=== PATIENT | female | born 1980 | race Caucasian/White ===

== ENCOUNTER 2022-08-19 13:02 | Inpatient (IN) ==
--- NOTE | 2022-08-13 13:27 | Anesthesiology Consultation ---
Date of Service August 13, 2022 Assessment & Plan (1) Encounter for pre-operative examination: Chart Review Chart Review: Acceptable Risk for Surgery and Patient NOT seen in Pre Admission Testing - Check test AM DOS -COVID screening: Per PAT nursing assessment on 08/13/22. Pt tested Covid positive 07/07/22 with a home test. Had fever, chills and cough- symptoms have since resolved. Pt scheduled as outpatient surgery- no further testing needed from anesthesia standpoint. No known COVID-19 positive contacts or current COVID-19 related symptoms. Travel screen negative. Patient vaccinated for Covid. At surgeon discretion if preop Covid testing being done. Consults Requested none ASA ASA2 Proposed Anesthesia Anesthesia Type: General Risk / Benefits Reviewed With: PT / POA / Parent / Guardian, Accepts Plan and Informed Consent Obtained History Surgery Operation Date: 08/19/22 13:40 Proposed Procedures p Laparoscopic Cholecystectomy, Possible Open or Cholangiogram - Derrek Hendrix MD Height/Weight Height: 5 ft 4 in Weight: 79.379 kg Allergies Allergy/AdvReac Type Severity Reaction Status Date / Time amoxicillin AdvReac Intermediate CAUSES Verified 08/19/22 13:33 UTI'S Medications Home Medications Medication Instructions Recorded Confirmed Last Taken famotidine 20 mg tablet 20 mg PO BID 08/13/22 08/19/22 08/19/22 09:00 omeprazole 20 mg capsule,delayed 20 mg PO QAM 08/13/22 08/19/22 08/19/22 09:00 release Active Medications Generic Name Dose Route Start Last Admin Trade Name Freq PRN Reason Stop Dose Admin Lactated Ringer's 1,000 mls @ 15 mls/hr 08/19/22 06:00 08/19/22 13:35 Lr IV 08/20/22 05:59 15 mls/hr .Q24H UYEN Administration NPO Date Last Intake of Fluids: 08/19/22 Time Last Intake of Fluids: 00:00 Date Last Intake of Solids: 08/19/22 Time Last Intake of Solids: 00:00 Past Medical History Medical History GERD (gastroesophageal reflux disease) History of COVID-19 07/07/22> SYMPTOMS RESOLVED Exercise / Class Metabolic Activity II 4-5 Yardwork/Stairs/Walk up hill Past Family History Family History Other No family history of adverse response to anesthesia Past Surgical History Surgical History History of esophagogastroduodenoscopy (EGD) History of tonsillectomy [place] teeth removed Past Anesthesia History No Hx of Anesthesia Complications and No Family Hx of Anesthesia Complications History of PONV No Hx of PONV and No Hx of Motion Sickness Social History Smoking Status: Current every day smoker tobacco type: cigarettes Smoking cigarettes per day: 20 DAILY>ADVISED Hx Alcohol Use: Yes Alcohol type: hard liquor alcohol intake frequency: a few times a month Hx Substance Use: Yes substance use type: marijuana Last Used Substance Other:: LAST USED>1 WEEK AGO (ADVISED) Physical Exam Vital Signs Last Vital Signs Temp 97.5 F L 08/19/22 13:24 Pulse 65 08/19/22 13:24 Resp 18 08/19/22 13:24 BP 125/63 08/19/22 13:24 Pulse Ox 98 08/19/22 13:24 O2 Del Method 08/19/22 13:24 ENMT Mouth: + chipped teeth (Cracked R lower molar) Thyromental Distance: > or= 3.5 Finger Breadths Mallampati Class: II Neck normal visual inspection Respiratory normal respiratory effort Auscultation: lungs clear to auscultation bilaterally Cardiovascular Rate/Rhythm: regular rate and regular rhythm Testing Laboratory Results 08/19/22 13:15 POC Ur Test NEG 08/04/22= SODIUM: 138 POTASSIUM: 4.2 CHLORIDE: 104 CO2: 27 BUN: 10 CREATININE: 0.8 GLUCOSE: 83 07/31/22= WBC: 8.87 H/H: 13.4/41.5 PLATELETS: 503 (platelets 467 11/2021- stable)
[~2022-08-19 13:02] MED LIST: CLINDA 900 MG **Premixed Bag IV SCH; LR 15ML/HR IV SCH
[2022-08-19] MEDS ORDERED: ATROPINE SULFATE 0.1 MG/ML 10ML SYR IV PRN (14:49)
[2022-08-19] MEDS ORDERED: ePHEDrine sulfate 50 MG/ML AMP IV PRN (14:49)
[2022-08-19] MEDS ORDERED: ONDANSETRON INJ 2 MG/ML 2 ML VIAL IV PRN (14:49)
--- NOTE | 2022-08-19 14:53 | History & Physical Bridge Note ---
Date of Service August 19, 2022 History & Physical Bridge Note I have examined the patient, reviewed the History & Physical and in the interval since the performance of the History & Physical I have noted the following changes of clinical significance: no changes noted
[2022-08-19] MEDS ORDERED: BACITRACIN OINT 15 GM TUBE ONE (15:14)
[2022-08-19] MEDS ORDERED: LIDOCAINE 1% LOCAL 20 ML VIAL ONE (15:14)
[2022-08-19] MEDS ORDERED: BUPIVACAINE 0.5 % 5 MG/1 ML MPF 30ML VIAL ONE (15:14)
[2022-08-19] MEDS ORDERED: fentaNYL citrate 100 MCG/2 ML VIAL ONE ×3 (15:15→17:08)
[2022-08-19] MEDS ORDERED: MIDAZOLAM HCL 1 MG/ML 2ML VIAL ONE (15:15)
[2022-08-19] MEDS ORDERED: ACETAMINOPHEN 1000 MG/100 ML IV IV ONE (15:36)
[2022-08-19] MEDS ORDERED: LIDOCAINE 2% MPF LOCAL 5 ML VIAL INFIL ONE (15:41)
[2022-08-19] MEDS ORDERED: ONDANSETRON INJ 2 MG/ML 2 ML VIAL ONE (15:41)
[2022-08-19] MEDS ORDERED: ROCURONIUM BROMIDE 10 MG/ML 5 ML VIAL IV ONE ×3 (15:41→17:02)
[2022-08-19] MEDS ORDERED: DEXAMETHASONE SOD INJ 4 MG/ML VIAL ONE (15:41)
[2022-08-19] MEDS ORDERED: PROPOFOL IV EMULSION 10 MG/ML 20 ML VIAL IV ONE ×2 (15:41→17:26)
[2022-08-19] MEDS ORDERED: GLYCOPYRROLATE 0.2 MG/ML VIAL ONE (17:15)
[2022-08-19] MEDS ORDERED: NEOSTIGMINE METHYLSULFATE 1 MG/ML 10ML VIAL ONE (17:15)
[2022-08-19] MEDS: fentaNYL citrate 100 MCG/2 ML VIAL IV PRN ×4 (17:42→18:03)
--- NOTE | 2022-08-19 18:25 | Anesthesiology Progress Note ---
Date of Service August 19, 2022 Anesthesia Post Procedure Vital Signs Vital Signs: Temp Pulse Pulse Resp BP BP Pulse Ox 08/19/22 18:15 36.5 C 64 17 118/85 100 08/19/22 18:05 56 L 12 133/80 96 08/19/22 17:55 69 14 144/82 H 100 08/19/22 17:45 68 21 120/72 100 08/19/22 17:36 36.7 C 74 20 129/75 100 08/19/22 13:24 36.4 C L 65 18 125/63 98 O2 Del Method O2 Flow Rate 08/19/22 18:15 Room Air 08/19/22 18:05 Room Air 08/19/22 17:55 Oxymask 2 08/19/22 17:45 Oxymask 6 08/19/22 17:36 Oxymask 6 08/19/22 13:24 Room Air Pain Intensity Abdomen: Pain Intensity: 2 Transfer of Care Handoff Completed per policy Notes Mental Status: alert / awake / arousable Patient Amnestic to Procedure: Yes Nausea / Vomiting: adequately controlled Pain: adequately controlled Airway Patency, RR, SpO2: stable & adequate BP & HR: stable & adequate Hydration State: stable & adequate Anesthetic Complications: no major complications apparent and Pt Satisfied with anesthetic care
[2022-08-19] MEDS: LACTATED RINGER'S 1,000 ML IV SCH (18:50)
--- NOTE | 2022-08-19 19:13 | Post Operative Brief Note ---
Immediate Post Op Note v1 Date of Surgery August 19, 2022 Pre & Post Diagnosis Operation Date: 08/19/22 13:40 Pre-Op Diagnosis: Chronic Calculous Cholecystitis Post-Op Diagnosis: acute Calculous Cholecystitis I identified the patient and participated in the time-out.: Yes Procedure Operation Date: 08/19/22 13:40 Actual Procedures p Laparoscopic Subtotal Cholecystectomy(Not Applicable) - Derrek Hendrix MD Surgeon Derrek Hendrix MD E M Assembler DEBRA De Jesus Estimated Blood Loss 20 Findings Consistent with Post-Op Diagnosis significant inflammation on gallbladder wall, pus in gallbladder, large gallstone ( 3.3cm ) at gallbladder neck, Fluids 800ml Specimens gallbladder Drains Erik-Montelongo Drain (10mm flat) Anesthesia Type General Complications none Disposition Accompanied Patient To Recovery: Yes
[2022-08-19] MEDS: metroNIDAZOLE 500 MG/100 ML BAG IV SCH (19:47)
[2022-08-19] MEDS: NICOTINE 7 MG/24 HR TDSY TD SCH (20:06)
[2022-08-19] MEDS: CIPROFLOXACIN / D5W 400 MG/200 ML BAG IV SCH (20:07)
[2022-08-19] MEDS: FAMOTIDINE 20 MG TAB PO SCH (20:07)
--- NOTE | 2022-08-19 20:15 | Operative Report (OR) ---
DATE OF PROCEDURE: 08/19/2022. PREOPERATIVE DIAGNOSES: Acute cholecystitis, cholelithiasis. POSTOPERATIVE DIAGNOSES: Acute cholecystitis, cholelithiasis. OPERATION: Laparoscopic subtotal cholecystectomy. ROSSI drainage x1. SURGEON: Derrek Hendrix MD. ANESTHESIA: General. ESTIMATED BLOOD LOSS: About 20 mL. FINDINGS: Large gallstone size about 3 x 3 cm. The gallstone stuck to the gallbladder neck, caused the gallbladder with significant inflammation with pus inside the gallbladder. COMPLICATIONS: None. INDICATIONS FOR THE PROCEDURE: This is a 42-year-old female, who presented with acute cholecystitis with cholelithiasis. I recommended to do a laparoscopic cholecystectomy, possible open, possible cho langiogram. I did talk to the patient about the benefits, risks, and alternate procedure. I indicat ed the risks may include, but not limited to, such as bleeding, infection, injury to other organs, in jury to common bile duct, bile leak, may need ERCP, sepsis, subtotal cholecystectomy, incisional sol ia. The patient understands. She signed informed consent and I answered all questions. DETAILS OF PROCEDURE: After we identified the patient and verified the procedure, we brought the pat ient to the OR, put the patient in the supine position on the OR table. The patient received SCD on bilateral legs to prevent DVT. Also, the patient received 900 mg of clindamycin IV for prophylactic antibiotic. The patient received general anesthesia without difficulty. The abdomen was prepped and draped in routine sterile fashion. After timeout, I injected the local anesthesia by using 1% lidoc gilson mixed with 0.5% Marcaine just above the umbilicus. Then I made a small incision just above umbil icus, opened fascia, opened peritoneum. Under direct vision, put a Yoli trocar in, connected to CO 2 to create pneumoperitoneum, flow rate at 6 liters per minute, pressure not more than 14 mmHg. Once we got a nice pneumoperitoneum, we put a camera in, looked around the abdomen, it shows normal findi ng on the liver; however, the gallbladder has significant inflammation, gallbladder wall thickening, edema, and significant distention confirmed the diagnosis of acute cholecystitis. Once we confirmed the diagnosis, we put another three 5 mm trocars on the right upper quadrant area and there about a 3 .3 cm large stone stuck to the gallbladder neck causing the whole gallbladder inflammation and at thi s moment, we tried to expose the triangle of Calot, but because of significant inflammation, we could not expose the cystic duct. At this moment, we decided to use a top-down technique. We used the Beltran ranjit to take down the gallbladder from the liver and then we opened the gallbladder, there was some pus came out. We suctioned out and then again, we found the patient had one large stone stuck to the gallbladder neck. Once we removed gallbladder neck and then we used the Endoloop to close near the gallbladder cystic duct x2; rechecked, no bile leak. Then, we used the Harmonic to take down the res t of the gallbladder, liver, one tiny piece near the cystic duct to prevent any potential injuries. The common bile duct rechecked, no bile leak. At this moment, I decided to put one RSOSI drainage becau se significant inflammation on the gallbladder. I put a 10 mm ROSSI drainage through the 5 mm trocar sit e using 2-0 silk to suture the drainage on the skin. Then, we removed the gallbladder with gallstone through the catch bag. Then, we reinserted the Yoli trocar in, connected to CO2 to create pneumop eritoneum, again to look around the abdomen, no bile leak and no active bleeding from the liver bed. Then, we removed all trocars under direct vision. No active bleeding from the trocar site. Pneumop eritoneum was released. Then I closed the umbilical incision fascial layer by using 0 Vicryl figure-o f-eight x2, closed subcutaneous layer by using 2-0 Vicryl interruptedly, closed skin by using 4-0 Fredi ryl continuous running, closed another three 5 mm trocar site of skin only by using 4-0 Vicryl. Then , we put the dressing on. The patient tolerated the procedure well. All instrument, needle, and spo nge counts were correct x2 at the end of the case. The patient was transferred to recovery room in s table condition. The specimen was sent to pathology. After the procedure, I did talk to the patient 's family member about the OR finding and the procedure we did. Also, I recommend the patient stay i n the hospital overnight and good control of pain and control infection, give her IV antibiotic and I V pain medication and the patient's family member understand. She agreed. Job ID: [id number]
[2022-08-19] MEDS: oxyCODONE/ACETAMINOPHEN 5mg/325mg TAB PO PRN (20:21)
[2022-08-19] MEDS: HYDROmorphone INJ 0.5 MG/0.5 ML SYR IV PRN (22:15)
[2022-08-20] MEDS: oxyCODONE/ACETAMINOPHEN 5mg/325mg TAB PO PRN ×5 (00:44→20:50)
[2022-08-20] MEDS: metroNIDAZOLE 500 MG/100 ML BAG IV SCH ×3 (04:02→20:52)
[2022-08-20] MEDS: CIPROFLOXACIN / D5W 400 MG/200 ML BAG IV SCH ×2 (06:46→20:41)
[2022-08-20] MEDS: HYDROmorphone INJ 0.5 MG/0.5 ML SYR IV PRN (06:46)
[2022-08-20] MEDS ORDERED: KETOROLAC TROMETHAMINE 15 MG/ML VIAL IV ONE (08:25)
--- NOTE | 2022-08-20 08:35 | Surgery Progress Note ---
Date of Service August 20, 2022 Assessment & Plan (1) Acute calculous cholecystitis: Plan: POD # 1 s/p laparoscopic subtotal cholecystectomy -avss - moderate to severe postop pain, not well controlled this am - mild nausea with pain, no vomiting - cheli drain serosanguineous - am labs ordered not drawn yet Plan: Will adjust pain medications , PO Percocet preferred but can take IV dilaudid q 3 hrs prn severe pain will give one dose of IV toradol now as she has had percocet and Dilaudid already this am likely combination of inadequate pain control and pain from pneumoperitoneum ecnouraged ambulation abdominal binder for support await am labs incentive spirometry ordered continue scds continue clear liquids for now Admission and Anticipated Discharge Date Admission Date: August 19, 2022 Subjective having pain, comes in waves, more in right upper abdomen right now feels hot and nauseous with the pain up to bathroom, has not walked hallway urinating without difficulty tolerated some jello and Swazi ice last night no vomiting no chest pain some pain with taking deep breath Physical Exam Constitutional: WD/WN, vitals as above cooperative; no acute distress and not ill appearing Respiratory: normal respiratory effort; no respiratory distress Gastrointestinal (Abdomen): Inspection/Auscultation: abdomen normal to inspection, + abdominal surgical incision (covered with dressings) and + abdominal surgical drain present (serosanguneous ); abdomen not distended Percussion/Palpation: + abdomen tender (at incision sites and RUQ and at drain site) and abdomen soft; no guarding and abdomen not rigid Skin: no rashes, warm and dry no jaundice Psychiatric: A+Ox3, euthymic affect Results & Data ([facility]) Vital Signs (Past 12 Hours) Vital Signs Temp Pulse Pulse Resp BP Pulse Ox O2 Del Method 08/20/22 07:35 36.8 C 60 18 148/81 H 97 Room Air 08/20/22 04:02 36.7 C 69 18 119/74 94 Room Air 08/19/22 22:27 36.9 C 66 18 137/82 99 Room Air 08/19/22 21:34 36.6 C 59 L 20 129/77 99 Room Air 08/19/22 20:35 36.7 C 56 L 18 151/76 H 96 Room Air Laboratory Results 12/28/22 12/28/22 Range/Units 17:54 13:15 POC Ur Test NEG (NEG) SARS-CoV-2, RNA, NAAT NEGATIVE (NEGATIVE)
[2022-08-20] MEDS: LACTATED RINGER'S 1,000 ML IV SCH ×2 (08:45→20:51)
[2022-08-20] MEDS: PANTOprazole 40 MG TAB PO SCH (08:46)
[2022-08-20] MEDS: FAMOTIDINE 20 MG TAB PO SCH ×2 (08:46→20:51)
[2022-08-20 09:34] LABS: Basophils # (auto) 0.02 K/uL (0-0.2); Basophils % (auto) 0.1 %; Hematocrit (blood only) 40.5 % (34.1-44.9); Hemoglobin 13.4 g/dl (12.0-16.0); Immature Granulocytes # (auto) 0.14 K/uL (0.00-0.02); Immature Granulocytes % (auto) 0.7 %; Lymphocytes % (auto) 6.3 %; Mean Corpuscular Hemoglobin 27.7 pg (25.0-34.0); Mean Corpuscular Hgb Conc 33.1 g/dL (32.0-36.0); Mean Corpuscular Volume 83.9 fL (80.0-100.0); Monocytes # (auto) 1.12 K/uL (0.24-0.82); Monocytes % (auto) 5.9 %; Neutrophils # (auto) 16.64 K/uL (1.4-6.5); Platelet Count 380 K/uL (130-400); RDW Coefficient of Variation 13.1 % (11.5-14.5); RDW Standard Deviation 40.3 fL (36.4-46.3); Red Blood Count 4.83 M/uL (3.93-5.22); White Blood Count 19.12 K/ul (4.8-10.8)
[2022-08-20 10:00] LABS: Albumin Globulin Ratio 1.5 (0.9-2); Albumin Level 3.9 gm/dl (3.4-5.0); BUN Creatinine Ratio 9.5 (10-20); Bilirubin,Total 0.5 mg/dl (0.2-1.0); Calcium 9.1 mg/dl (8.5-10.1); Creatinine Clr Calc Pharmacy 120.6 ml/min; Est GFR (Non-African American) 112.2 ml/min; Globulin 2.6 gm/dl (2.5-4.0); Potassium 3.4 mmol/L (3.5-5.1); Total Protein 6.5 gm/dl (6.0-8.3)
[2022-08-20] MEDS: NICOTINE 7 MG/24 HR TDSY TD SCH (12:29)
[2022-08-21] MEDS: metroNIDAZOLE 500 MG/100 ML BAG IV SCH ×3 (03:03→19:33)
[2022-08-21] MEDS: oxyCODONE/ACETAMINOPHEN 5mg/325mg TAB PO PRN ×5 (03:05→22:28)
[2022-08-21] MEDS: CIPROFLOXACIN / D5W 400 MG/200 ML BAG IV SCH ×2 (06:05→20:35)
[2022-08-21] MEDS: FAMOTIDINE 20 MG TAB PO SCH ×2 (08:22→20:36)
[2022-08-21] MEDS: PANTOprazole 40 MG TAB PO SCH (08:22)
[2022-08-21] MEDS: NICOTINE 7 MG/24 HR TDSY TD SCH (08:23)
[2022-08-21 09:03] LABS: Basophils # (auto) 0.04 K/uL (0-0.2); Basophils % (auto) 0.3 %; Eosinophils % (auto) 0.9 %; Hematocrit (blood only) 35.5 % (34.1-44.9); Hemoglobin 11.6 g/dl (12.0-16.0); Immature Granulocytes # (auto) 0.04 K/uL (0.00-0.02); Immature Granulocytes % (auto) 0.3 %; Lymphocytes # (auto) 3.89 K/uL (1.2-3.4); Lymphocytes % (auto) 33.8 %; Mean Corpuscular Hemoglobin 27.7 pg (25.0-34.0); Mean Corpuscular Hgb Conc 32.7 g/dL (32.0-36.0); Mean Corpuscular Volume 84.7 fL (80.0-100.0); Monocytes # (auto) 0.89 K/uL (0.24-0.82); Monocytes % (auto) 7.7 %; Neutrophils # (auto) 6.54 K/uL (1.4-6.5); Platelet Count 318 K/uL (130-400); RDW Coefficient of Variation 13.4 % (11.5-14.5); RDW Standard Deviation 41.4 fL (36.4-46.3); Red Blood Count 4.19 M/uL (3.93-5.22)
[2022-08-21 09:35] LABS: Albumin Globulin Ratio 1.6 (0.9-2); Albumin Level 3.6 gm/dl (3.4-5.0); BUN Creatinine Ratio 11.8 (10-20); Bilirubin,Total 0.5 mg/dl (0.2-1.0); Calcium 8.2 mg/dl (8.5-10.1); Creatinine Clr Calc Pharmacy 111.8 ml/min; Est GFR (African American) 126.8 ml/min; Est GFR (Non-African American) 109.4 ml/min; Globulin 2.3 gm/dl (2.5-4.0); Potassium 3.4 mmol/L (3.5-5.1); Total Protein 5.9 gm/dl (6.0-8.3)
--- NOTE | 2022-08-21 09:47 | Surgery Progress Note ---
Date of Service August 21, 2022 Assessment & Plan (1) Acute calculous cholecystitis: Plan: POD # 2 s/p laparoscopic subtotal cholecystectomy -avss - leukocytosis improved to 11.5k (19k yesterday) - pain improved, controlled - cheli drain now bilious output - t. bili and LFTS wnl Plan: HIDA scan to r/o bile leak NPO Continue pain management as needed continue ambulating hallway incentive spirometry SCDs for DVT prophylaxis. Dr. Hendrix has seen and examined pt, agrees with above. I saw pt, most likely bile leak, I recommend to do ERCP with stent placement by GI dr. Brannon, D/W benefits, risks and alternatives of the ERCP, pt understood, she agreed with ERCP, I answered all questions, Thanks, environmental quality analyst surgeon will cover this weekend and holiday, pt may be discharged tomorrow, if meet discharge criteria with CHELI Drainage, F/U me 1 week, Admission and Anticipated Discharge Date Admission Date: August 19, 2022 Subjective pain is better today about 3-4/10, Percocet controls pain no nausea or vomiting, CHELI drainage bile color, 165ml tolerated regular diet passing gas urinating without difficulty ambulated hallway yesterday x 2 Physical Exam Constitutional: WD/WN, vitals as above cooperative and comfortable; no acute distress and not ill appearing Respiratory: normal respiratory effort; no respiratory distress, no labored breathing and no retractions Gastrointestinal (Abdomen): Inspection/Auscultation: abdomen normal to inspection, + abdominal surgical incision (covered with clean/dry/dressings) and + abdominal surgical drain present (bilious output); abdomen not distended Percussion/Palpation: + abdomen tender (at incision sites and drain site) and abdomen soft; no guarding and abdomen not rigid Skin: no rashes, warm and dry no jaundice Psychiatric: Orientation: alert and oriented x 3 Results & Data ([facility]) Vital Signs (Past 12 Hours) Vital Signs Temp Pulse Resp BP Pulse Ox O2 Del Method 08/21/22 09:00 37.1 C 75 18 136/85 96 Room Air Laboratory Results 08/21/22 08/21/22 08/20/22 Range/Units 08:44 08:44 08:44 WBC 11.50 H (4.8-10.8) K/ul RBC 4.19 (3.93-5.22) M/uL Hgb 11.6 L (12.0-16.0) g/dl Hct 35.5 (34.1-44.9) % MCV 84.7 (80.0-100.0) fL MCH 27.7 (25.0-34.0) pg MCHC 32.7 (32.0-36.0) g/dL RDW Std Deviation 41.4 (36.4-46.3) fL RDW Coeff of Deidra 13.4 (11.5-14.5) % Plt Count 318 (130-400) K/uL MPV 9.0 L (9.4-12.3) fL Immature Gran % (Auto) 0.3 % Neut % (Auto) 57.0 % Lymph % (Auto) 33.8 % [place] % (Auto) 7.7 % Eos % (Auto) 0.9 % Baso % (Auto) 0.3 % Neut # (Auto) 6.54 H (1.4-6.5) K/uL Lymph # (Auto) 3.89 H (1.2-3.4) K/uL [place] # (Auto) 0.89 H (0.24-0.82) K/uL Eos # (Auto) 0.10 (0-0.50) K/uL Baso # (Auto) 0.04 (0-0.2) K/uL Immature Gran # (Auto) 0.04 H (0.00-0.02) K/uL Sodium 137 138 (136-145) mmol/L Potassium 3.4 L 3.4 L (3.5-5.1) mmol/L Chloride 105 104 (98-107) mmol/L Carbon Dioxide 28 26 (21-32) mmol/L Anion Gap 4 8 (3-11) BUN 8 6 (6-23) mg/dl Creatinine 0.68 0.63 (0.6-1.2) mg/dl Est Cr Clr Drug Dosing 111.8 120.6 ml/min Est GFR ( Amer) 126.8 130.0 ml/min Est GFR (Non-Af Amer) 109.4 112.2 ml/min BUN/Creatinine Ratio 11.8 9.5 L (10-20) Glucose 83 140 H (70-99(Fasting)) mg/dl Calcium 8.2 L 9.1 (8.5-10.1) mg/dl Total Bilirubin 0.5 0.5 (0.2-1.0) mg/dl AST 22 33 (13-39) U/L ALT 33 38 (7-52) U/L Alkaline Phosphatase 62 68 (34-104) U/L Total Protein 5.9 L 6.5 (6.0-8.3) gm/dl Albumin 3.6 3.9 (3.4-5.0) gm/dl Globulin 2.3 L 2.6 (2.5-4.0) gm/dl Albumin/Globulin Ratio 1.6 1.5 (0.9-2)
[2022-08-21] MEDS ORDERED: INDOMETHACIN 50 MG SUPP PR ONE (09:59)
[2022-08-21] MEDS: LACTATED RINGER'S 1,000 ML IV SCH ×2 (10:28→19:32)
--- NOTE | 2022-08-21 12:05 | Gastrointestinal Consultation ---
Date of Consultation August 21, 2022 Assessment & Plan (1) Acute calculous cholecystitis: (2) Bile leak: Patient is a 42 years old female with cholelithiasis, cholecystitis, status post laparoscopic subtotal cholecystectomy yesterday, found today to have a bile leak evident in ROSSI drain fluid. - Continue IV antibx - Keep NPO - ERCP for biliary stent placement in OR today by Dr. Brannon - GI to give further recs after ERCP completed Supervising Physician Co-Signing Physician Notes I performed a history and physical examination of the patient today, including specifically on physical exam - soft abdomen. I have discussed the patient's management with the advanced practitioner. Please refer to the nurse practitioner's note for the documented findings and plan of care. ERCP Patient was explained in detail regarding risks, benefits, limitations and alternatives of the above endoscopic procedure. Risks of intravenous sedation used for procedure were also explained. Risks include, but not limited to perforation, bleeding, infection, respiratory distress, cardiac arrest and . Patient is also aware about the possibility of missed lesion. Patient's questions were answered. The patient verbalized understanding the information and agreed to undergo the procedure. History of Present Illness Reason for Consultation: Bile leak Requesting Physician: Dr. Derrek Hendrix Attending Physician: Dr. Ami Brannon History of Present Illness Patient is a 42 years old female with history of nausea, right upper quadrant abdominal pain, found to have gallbladder neck stone on ultrasound. She was taken to the OR for laparoscopic subtotal cholecystectomy and ROSSI drain placement yesterday. This morning she was found to have bilious appearing fluid out of her ROSSI drain suspected to have a bile leak. She is having some tenderness over the right side of her abdomen, no fevers or chills, denies any chest pain or shortness of breath. No nausea or vomiting as well. Labs reviewed, mild leukocytosis with WBC of 11, H&H stable, LFTs normal. Allergies Allergy/AdvReac Type Severity Reaction Status Date / Time amoxicillin AdvReac Intermediate CAUSES Verified 08/19/22 13:33 UTI'S Home Medications Medication Instructions Recorded Confirmed Type famotidine 20 mg tablet 20 mg PO BID 08/13/22 08/19/22 History omeprazole 20 mg capsule,delayed 20 mg PO QAM 08/13/22 08/19/22 History release ciprofloxacin HCl 500 mg tablet 500 mg PO BID #14 tabs 08/21/22 Rx fluconazole 150 mg tablet 150 mg PO ONCE 1 dose #1 tab 08/21/22 Rx metronidazole 500 mg tablet 500 mg PO TID #21 tabs 08/21/22 Rx oxycodone-acetaminophen 5 mg-325 1 tab PO Q4H PRN pain #18 tabs 08/21/22 Rx mg tablet Patient History Medical History GERD (gastroesophageal reflux disease) History of COVID-19 07/07/22> SYMPTOMS RESOLVED Smoker Surgical History History of esophagogastroduodenoscopy (EGD) History of tonsillectomy [place] teeth removed Family History Other No family history of adverse response to anesthesia Social History Smoking Status: Current every day smoker Cigarettes Per Day: 20 DAILY>ADVISED; Second Hand Exposure: Yes; Hx Alcohol Use: Yes Alcohol type: hard liquor Hx Substance Use: Yes Last Used Substance Other:: LAST USED>1 WEEK AGO (ADVISED) Preferred Language: Sudanese Communication Ability: Effective Forging Die Sinker Required: No Beliefs That Will Affect Care: None Current Living Situation: Family Feels Safe at Home: Yes Safety Concerns: Feels Safe At This Time Assistive Devices: None Review of Systems Review of Systems: All systems reviewed & are unremarkable except as noted in HPI & below Physical Exam Constitutional: WD/WN, vitals as above well groomed, cooperative and comfortable Eyes: PERRL, conjunctivae normal, anicteric sclerae ENMT: external ear and nose normal, oropharynx normal Respiratory: normal respiratory effort, lungs clear to auscultation Cardiovascular: RRR, no murmur, no edema Gastrointestinal (Abdomen): Tender to palpation right upper quadrant area, bowel sounds hypoactive, abdomen otherwise soft. ROSSI drain on right side of the abdomen with bilious appearing fluid Skin: no rashes, warm and dry no jaundice Psychiatric: A+Ox3, euthymic affect Lymphatic: no lymphedema Results & Data ([facility]) Vital Signs (Past 12 Hours) Vital Signs Temp Pulse Resp BP Pulse Ox O2 Del Method 08/21/22 09:00 37.1 C 75 18 136/85 96 Room Air
[2022-08-21] MEDS: DOCUSATE SODIUM 100 MG CAP PO SCH ×2 (12:09→20:35)
--- NOTE | 2022-08-21 14:02 | Anesthesiology Consultation ---
Date of Service August 21, 2022 Assessment & Plan (1) Encounter for pre-operative examination: Chart Review Chart Review: Acceptable Risk for Surgery and Patient NOT seen in Pre Admission Testing Consults Requested none History Surgery Operation Date: 08/19/22 13:40 Proposed Procedures p Laparoscopic Cholecystectomy, Possible Open or Cholangiogram - Derrek Hendrix MD Operation Date: 08/21/22 10:20 Proposed Procedures p Endoscopic Retrograde Cholangiopancreatogram - Ami Brannon MD Height/Weight Height: 5 ft 4 in Weight: 78.9 kg Allergies Allergy/AdvReac Type Severity Reaction Status Date / Time amoxicillin AdvReac Intermediate CAUSES Verified 08/19/22 13:33 UTI'S Medications Home Medications Medication Instructions Recorded Confirmed Last Taken famotidine 20 mg tablet 20 mg PO BID 08/13/22 08/19/22 08/19/22 09:00 omeprazole 20 mg capsule,delayed 20 mg PO QAM 08/13/22 08/19/22 08/19/22 09:00 release ciprofloxacin HCl 500 mg tablet 500 mg PO BID #14 tabs 08/21/22 Unknown fluconazole 150 mg tablet 150 mg PO ONCE 1 dose #1 tab 08/21/22 Unknown metronidazole 500 mg tablet 500 mg PO TID #21 tabs 08/21/22 Unknown oxycodone-acetaminophen 5 mg-325 1 tab PO Q4H PRN pain #18 tabs 08/21/22 Unknown mg tablet Active Medications Generic Name Dose Route Start Last Admin Trade Name Freq PRN Reason Stop Dose Admin Docusate Sodium 100 mg 08/21/22 09:00 08/21/22 12:09 Docusate Sodium 100 Mg Cap PO 09/20/22 08:59 100 mg BID UYEN Administration Famotidine 20 mg 08/19/22 21:00 08/21/22 08:22 Famotidine 20 Mg Tab PO 09/18/22 20:59 20 mg BID UYEN Administration Lactated Ringer's 1,000 mls @ 80 mls/hr 08/19/22 18:39 08/21/22 10:28 Lr IV 09/18/22 18:38 80 mls/hr .[id number] UYEN Administration Ciprofloxacin 400 mg in 200 mls @ 100 mls/hr 08/19/22 19:00 08/21/22 08:13 Cipro / D5w IV 08/29/22 18:59 Infused Q12H UYEN Infusion Protocol Metronidazole 500 mg in 100 mls @ 100 mls/hr 08/19/22 19:00 08/21/22 13:55 Flagyl IV 08/29/22 18:59 Infused Q8H UYEN Infusion Miscellaneous 1 each 08/20/22 08:59 08/21/22 08:23 Remove Nicoderm Patch N/A 09/19/22 08:58 1 each [id number] UYEN Administration Nicotine 7 mg 08/19/22 19:45 08/21/22 08:23 Nicotine 7 Mg/24 Hr Tdsy TD 09/18/22 19:44 7 mg QAM UYEN Administration Oxycodone/Acetaminophen 2 tab 08/20/22 07:48 08/21/22 12:11 Oxycodone/Acetaminophen 5mg/325mg Tab PO 09/03/22 07:47 2 tab Q4H PRN Administration Severe Pain Oxycodone/Acetaminophen 1 tab 08/20/22 07:51 08/21/22 03:05 Oxycodone/Acetaminophen 5mg/325mg Tab PO 09/02/22 18:47 1 tab Q4H PRN Administration moderate pain Pantoprazole Sodium 40 mg 08/20/22 09:00 08/21/22 08:22 Pantoprazole 40 Mg Tab PO 09/19/22 08:59 40 mg QAM UYEN Administration Past Medical History Medical History GERD (gastroesophageal reflux disease) History of COVID-19 07/07/22> SYMPTOMS RESOLVED Past Family History Family History Other No family history of adverse response to anesthesia Past Surgical History Surgical History History of esophagogastroduodenoscopy (EGD) History of tonsillectomy [place] teeth removed Social History Smoking Status: Current every day smoker tobacco type: cigarettes Smoking cigarettes per day: 20 DAILY>ADVISED Hx Alcohol Use: Yes Alcohol type: hard liquor alcohol intake frequency: a few times a month Hx Substance Use: Yes substance use type: marijuana Last Used Substance Other:: LAST USED>1 WEEK AGO (ADVISED) Physical Exam Vital Signs Last Vital Signs Temp 37.1 C 08/21/22 09:00 Pulse 75 08/21/22 09:00 Resp 18 08/21/22 09:00 BP 136/85 08/21/22 09:00 Pulse Ox 96 08/21/22 09:00 O2 Del Method 08/21/22 09:00 O2 Flow Rate 2 08/19/22 17:55 Testing Laboratory Results 08/21/22 08:44 08/21/22 08:44 08/19/22 13:15 POC Ur Test NEG
[2022-08-21] MEDS ORDERED: LABETALOL HCL IV 5 MG/ML 20ML IV PRN (15:52)
[2022-08-21] MEDS ORDERED: HYDROmorphone INJ 1 MG/ML SYRINGE IV PRN (15:52)
[2022-08-21] MEDS ORDERED: MEPERIDINE HCL 25 MG/ML CARP/VIAL IV PRN (15:52)
[2022-08-21] MEDS ORDERED: ATROPINE SULFATE 0.1 MG/ML 10ML SYR IV PRN (15:52)
[2022-08-21] MEDS ORDERED: fentaNYL citrate 100 MCG/2 ML VIAL IV PRN (15:52)
[2022-08-21] MEDS ORDERED: PHENYLEPHRINE 100MCG/ML 5ML SYR IV PRN (15:52)
[2022-08-21] MEDS ORDERED: ePHEDrine sulfate 50 MG/ML AMP IV PRN (15:52)
[2022-08-21] MEDS ORDERED: ONDANSETRON INJ 2 MG/ML 2 ML VIAL IV PRN (15:52)
[2022-08-21] MEDS ORDERED: MIDAZOLAM HCL 1 MG/ML 2ML VIAL ONE (16:50)
[2022-08-21] MEDS ORDERED: fentaNYL citrate 100 MCG/2 ML VIAL ONE ×2 (16:50→17:49)
[2022-08-21] MEDS ORDERED: DEXAMETHASONE SOD INJ 4 MG/ML VIAL ONE (16:50)
[2022-08-21] MEDS ORDERED: PROPOFOL IV EMULSION 10 MG/ML 20 ML VIAL IV ONE (16:50)
[2022-08-21] MEDS ORDERED: ONDANSETRON INJ 2 MG/ML 2 ML VIAL ONE (16:50)
[2022-08-21] MEDS ORDERED: SUCCINYLCHOLINE CHLORIDE 20 MG/ML 10 ML VIAL IV ONE (16:51)
[2022-08-21] MEDS ORDERED: ROCURONIUM BROMIDE 10 MG/ML 5 ML VIAL IV ONE (16:51)
[2022-08-21] MEDS ORDERED: LARYING-O-JET KIT (LTA) ONE (16:51)
[2022-08-21] MEDS ORDERED: LIDOCAINE 2% MPF LOCAL 5 ML VIAL INFIL ONE (16:51)
--- NOTE | 2022-08-21 18:03 | Operative Report ---
Post Operative Report Pre & Post Diagnosis Operation Date: 08/19/22 13:40 Pre-Op Diagnosis: Chronic Calculous Cholecystitis Post-Op Diagnosis: Chronic Calculous Cholecystitis Operation Date: 08/21/22 10:20 Pre-Op Diagnosis: Chronic Calculous Cholecystitis Post-Op Diagnosis: Chronic Calculous Cholecystitis I identified the patient and participated in the time-out.: Yes Procedure Operation Date: 08/19/22 13:40 Actual Procedures p Laparoscopic Subtotal Cholecystectomy(Not Applicable) - Derrek Hendrix MD Operation Date: 08/21/22 10:20 Actual Procedures p Endoscopic Retrograde Cholangiopancreatogram(Not Applicable) - Ami Brannon MD Surgeon Ami Brannon MD Distribution Engineering Technologist DEBRA De Jesus Estimated Blood Loss 1 Findings See Below (Bile leak, stents placed) Specimens None Description of Procedure ERCP I attest to the content of the Intraoperative Record and any orders documented therein. Any exceptions are noted below.
--- NOTE | 2022-08-21 18:09 | GI REPORT ---
Patient Name: Felisha Boateng Procedure Date: 08/21/2022 10:51 AM Date of : 1980 Admit Type: Inpatient Age: 42 Gender: Female Attending MD: Ami Brannon MD, Procedure: ERCP Providers: Ami Brannon MD Referring MD: Reid Foote Md Indications: Treatment of bile leak Medicines: General Anesthesia Complications: No immediate complications. Estimated Blood Loss: Estimated blood loss: none. Procedure: Pre-Anesthesia Assessment: - Prior to the procedure, a History and Physical was performed, and patient medications, allergies and sensitivities were reviewed. The patient's tolerance of previous anesthesia was reviewed. - The risks and benefits of the procedure and the sedation options and risks were discussed with the patient. All questions were answered and informed consent was obtained. - Patient identification and proposed procedure were verified prior to the procedure by the physician and the nurse. The procedure was verified in the procedure room. - Pre-procedure physical examination revealed no contraindications to sedation. After obtaining informed consent, the scope was passed under direct vision. Throughout the procedure, the patient's blood pressure, pulse, and oxygen saturations were monitored continuously. The Duodenoscope was introduced through the mouth, and advanced to the duodenum and used to inject contrast into the bile duct. The ERCP was accomplished without difficulty. The patient tolerated the procedure well. Findings: A inventory checker film of the abdomen was obtained. One percutaneous drain ending in the Right upper quadrant was seen. The esophagus was successfully intubated under direct vision. The scope was advanced to a normal major papilla in the descending duodenum without detailed examination of the pharynx, larynx and associated structures, and upper GI tract. The upper GI tract was grossly normal. A 0.025 inch x 270 cm angled Visiglide wire was passed into the biliary tree. The traction (standard) sphincterotome was passed over the guidewire and the bile duct was then deeply cannulated. Contrast was injected. I personally interpreted the bile duct images. Ductal flow of contrast was adequate. Image quality was adequate. Contrast extended to the main bile duct. Opacification of the entire biliary tree except for the gallbladder was successful. The maximum diameter of the ducts was 9 mm. Extravasation of contrast originating from the cystic duct was observed. Biliary sphincterotomy was made with a monofilament traction (standard) sphincterotome using ERBE electrocautery. There was no post-sphincterotomy bleeding. The biliary tree was swept with an 11.5 mm balloon starting at the bifurcation. Nothing was found. One 10 mm by 8 cm covered metal biliary stent was placed into the common bile duct. Bile flowed through the stent. The stent was in good position. One 7 Fr by 10 cm plastic biliary stent with a single external pigtail and a single internal pigtail was placed into the common bile duct. Bile flowed through the stent. The stent was in good position. Indomethacin 100 mg was given via suppository to decrease the risk of post-ERCP pancreatitis (PEP). Impression: - A bile leak from the cystic duct was found. - A biliary sphincterotomy was performed. - One covered metal and one plastic biliary stents were placed into the common bile duct. Recommendation: - Return patient to hospital diop for ongoing care. - Repeat ERCP in 2 months to remove stent. Ami Brannon MD 08/21/2022 6:08:37 PM This report has been signed electronically. Note Initiated On: 08/21/2022 10:51 AM Number of Addenda: 0 I attest to the content of the Intraoperative Record and orders documented therein, exceptions below {[id number]}
[2022-08-21] MEDS ORDERED: GLUCAGON FOR INJ 1 MG VIAL ONE (18:21)
--- NOTE | 2022-08-21 18:41 | Anesthesiology Progress Note ---
Date of Service August 21, 2022 Anesthesia Post Procedure Vital Signs Vital Signs: Temp Pulse Pulse Resp BP Pulse Ox O2 Del Method 08/21/22 18:30 36.6 C 52 L 14 159/97 H 97 Room Air 08/21/22 18:20 62 14 165/82 H 99 Room Air 08/21/22 18:10 36.0 C L 79 16 154/86 H 99 Oxymask 08/21/22 16:48 37.4 C 62 16 117/73 98 Room Air 08/21/22 15:52 37.3 C 60 18 104/67 96 Room Air 08/21/22 09:00 37.1 C 75 18 136/85 96 Room Air 08/20/22 20:57 37.1 C 54 L 16 132/80 98 Room Air O2 Flow Rate 08/21/22 18:30 08/21/22 18:20 08/21/22 18:10 6 08/21/22 16:48 08/21/22 15:52 08/21/22 09:00 08/20/22 20:57 Pain Intensity Abdomen: Pain Intensity: 2 Transfer of Care Handoff Completed per policy Notes Mental Status: alert / awake / arousable Patient Amnestic to Procedure: Yes Nausea / Vomiting: adequately controlled Pain: adequately controlled Airway Patency, RR, SpO2: stable & adequate BP & HR: stable & adequate Hydration State: stable & adequate Anesthetic Complications: no major complications apparent and Pt Satisfied with anesthetic care
--- NOTE | 2022-08-21 18:49 | Fluoroscopy Report ---
[place] ERCP biliary ductal CLINICAL HISTORY: for ercp. Common bile duct stent placement. COMPARISON STUDY: None. FLUOROSCOPY TIME: 1 minute and 3 seconds. FINDINGS: 12 fluoroscopic spot image of the right upper quadrant were submitted for review. The ampul la was cannulated and contrast was injected into the common bile duct. A balloon sweep was performed. A metallic common bile duct stent and a plastic common bile duct stent were placed and appear good p osition. A surgical drain is also seen within the right upper quadrant. There is evidence for a cysti c duct leak. The patient is status post cholecystectomy. IMPRESSION: Fluoroscopic assistance as above. ACT 112: Negative or not required by law. Electronically signed by: Ish Gutierrez M.D. 08/21/2022 6:48 PM
[2022-08-21] MEDS: HYDROmorphone INJ 0.5 MG/0.5 ML SYR IV PRN (19:36)
[2022-08-21] MEDS: ONDANSETRON INJ 2 MG/ML 2 ML VIAL IV PRN (19:41)
[2022-08-22] MEDS: oxyCODONE/ACETAMINOPHEN 5mg/325mg TAB PO PRN ×4 (03:03→18:31)
[2022-08-22] MEDS: metroNIDAZOLE 500 MG/100 ML BAG IV SCH ×3 (03:06→18:21)
[2022-08-22] MEDS: ONDANSETRON INJ 2 MG/ML 2 ML VIAL IV PRN ×2 (05:07→11:07)
[2022-08-22 06:13] LABS: Basophils # (auto) 0.02 K/uL (0-0.2); Basophils % (auto) 0.1 %; Hematocrit (blood only) 36.8 % (34.1-44.9); Hemoglobin 12.8 g/dl (12.0-16.0); Immature Granulocytes # (auto) 0.07 K/uL (0.00-0.02); Immature Granulocytes % (auto) 0.4 %; Lymphocytes # (auto) 1.04 K/uL (1.2-3.4); Lymphocytes % (auto) 6.1 %; Mean Corpuscular Hemoglobin 28.1 pg (25.0-34.0); Mean Corpuscular Hgb Conc 34.8 g/dL (32.0-36.0); Mean Corpuscular Volume 80.9 fL (80.0-100.0); Monocytes # (auto) 1.15 K/uL (0.24-0.82); Monocytes % (auto) 6.7 %; Neutrophils # (auto) 14.87 K/uL (1.4-6.5); Neutrophils % (auto) 86.7 %; Platelet Count 349 K/uL (130-400); RDW Coefficient of Variation 12.4 % (11.5-14.5); RDW Standard Deviation 36.5 fL (36.4-46.3); Red Blood Count 4.55 M/uL (3.93-5.22); White Blood Count 17.15 K/ul (4.8-10.8)
[2022-08-22 06:30] LABS: Albumin Globulin Ratio 1.5 (0.9-2); Albumin Level 3.6 gm/dl (3.4-5.0); BUN Creatinine Ratio 13.6 (10-20); Bilirubin,Total 0.6 mg/dl (0.2-1.0); Calcium 8.2 mg/dl (8.5-10.1); Creatinine Clr Calc Pharmacy 115.2 ml/min; Est GFR (African American) 128.1 ml/min; Est GFR (Non-African American) 110.5 ml/min; Globulin 2.4 gm/dl (2.5-4.0); Potassium 3.9 mmol/L (3.5-5.1)
[2022-08-22] MEDS: CIPROFLOXACIN / D5W 400 MG/200 ML BAG IV SCH ×2 (06:34→18:22)
[2022-08-22] MEDS: DOCUSATE SODIUM 100 MG CAP PO SCH ×2 (08:31→19:37)
[2022-08-22] MEDS: FAMOTIDINE 20 MG TAB PO SCH ×2 (08:32→19:37)
[2022-08-22] MEDS: PANTOprazole 40 MG TAB PO SCH (08:32)
[2022-08-22] MEDS: LACTATED RINGER'S 1,000 ML IV SCH ×2 (08:37→18:20)
[2022-08-22] MEDS: HYDROmorphone INJ 0.5 MG/0.5 ML SYR IV PRN ×3 (08:45→20:24)
[2022-08-22] MEDS: NICOTINE 7 MG/24 HR TDSY TD SCH (10:04)
--- NOTE | 2022-08-22 11:04 | Surgery Progress Note ---
Date of Service August 22, 2022 Assessment & Plan (1) Acute calculous cholecystitis: Plan: s/p lap cholecystectomy with bile leak. s/p ercp Wednesday - continued pain/ bloating today with increased leukocytosis. will continue IV antibiotics. drainage is slowly clearing - may take another 1-2 days for symptoms to improve. Not ready for discharge today as still requiring IV pain medications and not eating. Admission and Anticipated Discharge Date Admission Date: August 21, 2022 Subjective Does not feel well - notes pain requiring IV medications to control. No flatus/ bowel movement but is noticing belching. Not hungry and is only drinking small sips of water. Pain is in epigastrium, right upper abdomen. Physical Exam Constitutional: WD/WN, vitals as above Eyes: PERRL, conjunctivae normal, anicteric sclerae Respiratory: normal respiratory effort, lungs clear to auscultation Cardiovascular: RRR, no murmur, no edema Gastrointestinal (Abdomen): Inspection/Auscultation: + abdomen distended (mild), + abdominal surgical incision (dressings dry), + abdominal surgical drain present (slightly bile tinged, clearing) and + hypoactive bowel sounds Percussion/Palpation: + abdomen tender (epigastric) and abdomen soft Results & Data ([facility]) Vital Signs (Past 12 Hours) Vital Signs Temp Pulse Pulse Resp BP Pulse Ox O2 Del Method 08/22/22 07:26 36.9 C 57 L 18 143/85 H 97 Room Air 08/22/22 03:06 36.4 C L 57 L 14 140/88 98 Room Air Laboratory Results 08/22/22 08/22/22 Range/Units 05:48 05:48 WBC 17.15 H (4.8-10.8) K/ul RBC 4.55 (3.93-5.22) M/uL Hgb 12.8 (12.0-16.0) g/dl Hct 36.8 (34.1-44.9) % MCV 80.9 (80.0-100.0) fL MCH 28.1 (25.0-34.0) pg MCHC 34.8 (32.0-36.0) g/dL RDW Std Deviation 36.5 (36.4-46.3) fL RDW Coeff of Deidra 12.4 (11.5-14.5) % Plt Count 349 (130-400) K/uL MPV 9.0 L (9.4-12.3) fL Immature Gran % (Auto) 0.4 % Neut % (Auto) 86.7 % Lymph % (Auto) 6.1 % [place] % (Auto) 6.7 % Eos % (Auto) 0.0 % Baso % (Auto) 0.1 % Neut # (Auto) 14.87 H (1.4-6.5) K/uL Lymph # (Auto) 1.04 L (1.2-3.4) K/uL [place] # (Auto) 1.15 H (0.24-0.82) K/uL Eos # (Auto) 0.00 (0-0.50) K/uL Baso # (Auto) 0.02 (0-0.2) K/uL Immature Gran # (Auto) 0.07 H (0.00-0.02) K/uL Sodium 135 L (136-145) mmol/L Potassium 3.9 (3.5-5.1) mmol/L Chloride 103 (98-107) mmol/L Carbon Dioxide 26 (21-32) mmol/L Anion Gap 6 (3-11) BUN 9 (6-23) mg/dl Creatinine 0.66 (0.6-1.2) mg/dl Est Cr Clr Drug Dosing 115.2 ml/min Est GFR ( Amer) 128.1 ml/min Est GFR (Non-Af Amer) 110.5 ml/min BUN/Creatinine Ratio 13.6 (10-20) Glucose 116 H (70-99(Fasting)) mg/dl Calcium 8.2 L (8.5-10.1) mg/dl Total Bilirubin 0.6 (0.2-1.0) mg/dl AST 28 (13-39) U/L ALT 42 (7-52) U/L Alkaline Phosphatase 72 (34-104) U/L Total Protein 6.0 (6.0-8.3) gm/dl Albumin 3.6 (3.4-5.0) gm/dl Globulin 2.4 L (2.5-4.0) gm/dl Albumin/Globulin Ratio 1.5 (0.9-2)
[2022-08-22] MEDS: SUCRALFATE 1 GM/10 ML UDC PO SCH ×2 (17:06→19:37)
[2022-08-23] MEDS: oxyCODONE/ACETAMINOPHEN 5mg/325mg TAB PO PRN ×5 (00:03→22:41)
[2022-08-23] MEDS: metroNIDAZOLE 500 MG/100 ML BAG IV SCH ×3 (03:02→18:36)
[2022-08-23] MEDS: HYDROmorphone INJ 0.5 MG/0.5 ML SYR IV PRN ×5 (03:03→20:50)
[2022-08-23] MEDS: CIPROFLOXACIN / D5W 400 MG/200 ML BAG IV SCH ×2 (06:32→18:35)
[2022-08-23 06:40] LABS: Albumin Globulin Ratio 1.5 (0.9-2); Albumin Level 3.5 gm/dl (3.4-5.0); BUN Creatinine Ratio 10.2 (10-20); Bilirubin,Total 0.9 mg/dl (0.2-1.0); Calcium 8.1 mg/dl (8.5-10.1); Creatinine Clr Calc Pharmacy 128.8 ml/min; Est GFR (African American) 132.9 ml/min; Est GFR (Non-African American) 114.6 ml/min; Globulin 2.4 gm/dl (2.5-4.0); Potassium 3.8 mmol/L (3.5-5.1); Total Protein 5.9 gm/dl (6.0-8.3)
[2022-08-23 06:46] LABS: Hematocrit (blood only) 40.7 % (34.1-44.9); Hemoglobin 13.8 g/dl (12.0-16.0); Mean Corpuscular Hemoglobin 27.6 pg (25.0-34.0); Mean Corpuscular Hgb Conc 33.9 g/dL (32.0-36.0); Mean Corpuscular Volume 81.4 fL (80.0-100.0); Mean Platelet Volume 9.1 fL (9.4-12.3); Platelet Count 370 K/uL (130-400); RDW Coefficient of Variation 13.1 % (11.5-14.5); RDW Standard Deviation 38.3 fL (36.4-46.3); White Blood Count 23.78 K/ul (4.8-10.8)
[2022-08-23 06:50] LABS: Basophils # (auto) 0.03 K/uL (0-0.2); Basophils % (auto) 0.1 %; Immature Granulocytes % (auto) 2.5 %; Lymphocytes # (auto) 1.39 K/uL (1.2-3.4); Lymphocytes % (auto) 5.8 %; Monocytes # (auto) 1.65 K/uL (0.24-0.82); Monocytes % (auto) 6.9 %; Neutrophils # (auto) 20.11 K/uL (1.4-6.5); Neutrophils % (auto) 84.7 %; Toxic Vacuolation 1+
[2022-08-23] MEDS: DOCUSATE SODIUM 100 MG CAP PO SCH ×2 (07:46→19:07)
[2022-08-23] MEDS: FAMOTIDINE 20 MG TAB PO SCH ×2 (07:46→19:07)
[2022-08-23] MEDS: SUCRALFATE 1 GM/10 ML UDC PO SCH ×4 (07:46→19:07)
[2022-08-23] MEDS: NICOTINE 7 MG/24 HR TDSY TD SCH (07:47)
--- NOTE | 2022-08-23 09:45 | Surgery Progress Note ---
Date of Service August 23, 2022 Assessment & Plan (1) Acute calculous cholecystitis: Plan: s/p lap cholecystectomy with bile leak. s/p ercp Wednesday - continued pain/ bloating today with increasing leukocytosis despite IV antibiotics. Drainage is less bilious, liver tests are normal. ? pancreatitis, ? ileus, ? obstruction or undrained abscess. Will add lipase to lab work, check abd/ pelvis CT scan, make npo excepts sips, try bowel regimen. Continue IV antibiotics. Admission and Anticipated Discharge Date Admission Date: August 21, 2022 Subjective Continues to not feel well, unchanged from yesterday except now with some nausea when walking around. Still with belching, no flatus or bowel movement since Wednesday. Feels bloated, central epigastric pain radiating in band to both sides. Not able to eat. Intermittent cough,nonproductive. Physical Exam Constitutional: WD/WN, vitals as above Eyes: PERRL, conjunctivae normal, anicteric sclerae Respiratory: normal respiratory effort, lungs clear to auscultation Cardiovascular: RRR, no murmur, no edema Gastrointestinal (Abdomen): Inspection/Auscultation: + abdomen distended (mild), + abdominal surgical incision (dressings dry), + abdominal surgical drain present (serous) and + hypoactive bowel sounds Percussion/Palpation: + abdomen tender (epigastric) and abdomen soft Results & Data ([facility]) Vital Signs (Past 12 Hours) Vital Signs Temp Pulse Resp BP Pulse Ox O2 Del Method 08/23/22 07:33 36.5 C 99 H 20 128/84 97 Room Air Laboratory Results Abnormal lab results 08/23/22 08/23/22 Range/Units 05:51 05:51 WBC 23.78 H (4.8-10.8) K/ul MPV 9.1 L (9.4-12.3) fL Neut # (Auto) 20.11 H (1.4-6.5) K/uL [place] # (Auto) 1.65 H (0.24-0.82) K/uL Immature Gran # (Auto) 0.60 H (0.00-0.02) K/uL Sodium 132 L (136-145) mmol/L Creatinine 0.59 L (0.6-1.2) mg/dl Glucose 103 H (70-99(Fasting)) mg/dl Calcium 8.1 L (8.5-10.1) mg/dl Total Protein 5.9 L (6.0-8.3) gm/dl Globulin 2.4 L (2.5-4.0) gm/dl
[2022-08-23] MEDS ORDERED: OPTIRAY 350 100ml IV ONE (10:05)
[2022-08-23] MEDS: POLYETHYLENE (MIRALAX) 17 GM PACK PO SCH (10:18)
[2022-08-23] MEDS: PANTOprazole 40 MG TAB PO SCH (10:18)
[2022-08-23] MEDS: LACTATED RINGER'S 1,000 ML IV SCH ×2 (10:21→22:40)
--- NOTE | 2022-08-23 10:59 | CT Scan Report ---
ABDOMEN AND PELVIS CT WITH IV CONTRAST CT DOSE: 637.54 mGy.cm HISTORY: increasing wbc count, s/p ercp and lap cara TECHNIQUE: Multiaxial CT images of the abdomen and pelvis were performed following the use of intrave nous contrast. A dose lowering technique was utilized adhering to the principles of ALARA. COMPARISON STUDY: None. FINDINGS: Bibasilar linear densities consistent with subsegmental atelectasis. Punctate focus of gas seen within the anterior abdomen likely corresponding to the patient's recent postoperative state. No acute fractures identified. Mild hepatic steatosis. No hepatic or splenic masses. The main portal ve in is patent. No retroperitoneal lymphadenopathy. Normal caliber abdominal aorta. Status post recent cholecystectomy. There are 2 common bile duct stents which appear in good position. There is a surgic al drain terminating within the gallbladder fossa. Trace fluid and hyperdense material/contrast withi n the gallbladder fossa likely corresponds the patient's known cystic duct/bile leak. Mild thickening at the gastric antrum best seen on image 142. The pancreas appears edematous with mild peripancreati c edema. This may represent a mild acute pancreatitis. An 8 mm hypodense lesion within the right kidn ey is too small to characterize favors a cyst. Normal left kidney. The adrenal glands are unremarkabl e. Small amount of fluid seen throughout the abdomen and pelvis most pronounced within the right uppe r quadrant. No loculated fluid collections to suggest an abscess at this time. The bladder, uterus, b ilateral adnexa are within normal limits. No evidence for bowel obstruction. Small amount of fluid wi thin the distal esophagus. A few colonic diverticula. No evidence for acute diverticulitis. The appen corine is normal in caliber. IMPRESSION: 1. Status post recent cholecystectomy. Small amount of fluid and contrast at the cholecystectomy bed likely corresponds to the patient's known cystic duct/bile leak. 2. The common bile duct stents and right upper quadrant drain appear in good position. 3. Small amount of fluid within the abdomen and pelvis. However, no loculated fluid collections to dhillon ggest an abscess. 4. Mild peripancreatic edema/fluid. This may represent an acute pancreatitis. Recommend correlation w ith hepatic enzymes. 5. Mild thickening of the gastric antrum which could be reactive to the recent postoperative change. 6. No evidence for bowel obstruction. 7. Additional findings as described above. ACT 112: Negative or not required by law. Electronically signed by: Ish Gutierrez M.D. 08/23/2022 10:56 AM
[2022-08-23] MEDS: ACETAMINOPHEN 325 MG TAB PO PRN (15:13)
[2022-08-24] MEDS: HYDROmorphone INJ 0.5 MG/0.5 ML SYR IV PRN ×7 (00:07→22:34)
[2022-08-24] MEDS: ACETAMINOPHEN 325 MG TAB PO PRN (00:08)
[2022-08-24] MEDS: metroNIDAZOLE 500 MG/100 ML BAG IV SCH ×3 (03:23→18:22)
[2022-08-24] MEDS: CIPROFLOXACIN / D5W 400 MG/200 ML BAG IV SCH ×2 (06:21→18:24)
[2022-08-24 07:57] LABS: Hematocrit (blood only) 35.6 % (34.1-44.9); Hemoglobin 12.3 g/dl (12.0-16.0); Mean Corpuscular Hemoglobin 28.1 pg (25.0-34.0); Mean Corpuscular Hgb Conc 34.6 g/dL (32.0-36.0); Mean Corpuscular Volume 81.5 fL (80.0-100.0); Mean Platelet Volume 8.7 fL (9.4-12.3); Platelet Count 318 K/uL (130-400); RDW Coefficient of Variation 13.1 % (11.5-14.5); RDW Standard Deviation 38.6 fL (36.4-46.3); Red Blood Count 4.37 M/uL (3.93-5.22); White Blood Count 25.66 K/ul (4.8-10.8)
[2022-08-24 08:27] LABS: Albumin Globulin Ratio 1.2 (0.9-2); Albumin Level 3.1 gm/dl (3.4-5.0); BUN Creatinine Ratio 9.4 (10-20); Bilirubin,Total 0.6 mg/dl (0.2-1.0); Calcium 7.8 mg/dl (8.5-10.1); Creatinine Clr Calc Pharmacy 143.4 ml/min; Est GFR (African American) 137.7 ml/min; Est GFR (Non-African American) 118.8 ml/min; Globulin 2.5 gm/dl (2.5-4.0); Potassium 3.3 mmol/L (3.5-5.1); Total Protein 5.6 gm/dl (6.0-8.3)
[2022-08-24 08:28] LABS: Basophils # (auto) 0.05 K/uL (0-0.2); Basophils % (auto) 0.2 %; Eosinophils # (auto) 0.03 K/uL (0-0.50); Eosinophils % (auto) 0.1 %; Immature Granulocytes # (auto) 0.15 K/uL (0.00-0.02); Immature Granulocytes % (auto) 0.6 %; Lymphocytes # (auto) 1.01 K/uL (1.2-3.4); Lymphocytes % (auto) 3.9 %; Monocytes # (auto) 1.44 K/uL (0.24-0.82); Monocytes % (auto) 5.6 %; Neutrophils # (auto) 22.98 K/uL (1.4-6.5); Neutrophils % (auto) 89.6 %
[2022-08-24] MEDS: DOCUSATE SODIUM 100 MG CAP PO SCH ×2 (08:43→19:19)
[2022-08-24] MEDS: SUCRALFATE 1 GM/10 ML UDC PO SCH ×4 (08:43→19:18)
[2022-08-24] MEDS: PANTOprazole 40 MG TAB PO SCH (08:44)
[2022-08-24] MEDS: FAMOTIDINE 20 MG TAB PO SCH ×2 (08:44→19:18)
[2022-08-24] MEDS: NICOTINE 7 MG/24 HR TDSY TD SCH (08:46)
[2022-08-24] MEDS: POLYETHYLENE (MIRALAX) 17 GM PACK PO SCH (08:54)
[2022-08-24] MEDS: oxyCODONE/ACETAMINOPHEN 5mg/325mg TAB PO PRN ×2 (10:51→14:55)
--- NOTE | 2022-08-24 13:39 | Surgery Progress Note ---
Date of Service August 24, 2022 Assessment & Plan (1) Hypokalemia: Plan: will replete. (2) Acute calculous cholecystitis: Plan: s/p lap cara with bile leak, s/p ercp Wednesday now with pancreatitis, l eukocytosis. LFT's normal, ROSSI continues to clear, lipase less today. Await return of bowel function prior to advancing diet - took miralax, declining suppository. No return yet. Discussed trying to minimize narcotics as this is likely contributing to delayed return of bowel function. Admission and Anticipated Discharge Date Admission Date: August 21, 2022 Subjective Feels about the same. Still with epigastric pain, belching. States no flatus or bowel movement. Taking miralax and is noticing more rumbling. Physical Exam Constitutional: WD/WN, vitals as above Eyes: PERRL, conjunctivae normal, anicteric sclerae Respiratory: normal respiratory effort, lungs clear to auscultation Cardiovascular: RRR, no murmur, no edema Gastrointestinal (Abdomen): Inspection/Auscultation: + abdomen distended (mild), + abdominal surgical incision (dressings dry), + abdominal surgical drain present (serous) and + hypoactive bowel sounds Percussion/Palpation: + abdomen tender (epigastric) and abdomen soft Results & Data ([facility]) Vital Signs (Past 12 Hours) Vital Signs Temp Pulse Resp BP Pulse Ox O2 Del Method 08/24/22 07:35 Room Air 08/24/22 07:58 36.8 C 91 H 18 102/63 96 Room Air 08/24/22 06:25 36.7 C 80 18 135/86 98 Room Air Laboratory Results Abnormal lab results 08/24/22 08/24/22 Range/Units 07:46 07:46 WBC 25.66 H (4.8-10.8) K/ul MPV 8.7 L (9.4-12.3) fL Neut # (Auto) 22.98 H (1.4-6.5) K/uL Lymph # (Auto) 1.01 L (1.2-3.4) K/uL [place] # (Auto) 1.44 H (0.24-0.82) K/uL Immature Gran # (Auto) 0.15 H (0.00-0.02) K/uL Sodium 133 L (136-145) mmol/L Potassium 3.3 L (3.5-5.1) mmol/L BUN 5 L (6-23) mg/dl Creatinine 0.53 L (0.6-1.2) mg/dl BUN/Creatinine Ratio 9.4 L (10-20) Glucose 111 H (70-99(Fasting)) mg/dl Calcium 7.8 L (8.5-10.1) mg/dl AST 9 L (13-39) U/L Total Protein 5.6 L (6.0-8.3) gm/dl Albumin 3.1 L (3.4-5.0) gm/dl Lipase 378 H (11-82) U/L
[2022-08-24] MEDS: LACTATED RINGER'S 1,000 ML IV SCH ×2 (14:57→22:58)
[2022-08-24] MEDS ORDERED: bisacodyL 5 MG TABEC PO PRN (15:14)
[2022-08-24] MEDS: POTASSIUM CHLORIDE CRTAB 20 MEQ TABCR PO SCH (19:18)
[2022-08-25] MEDS: oxyCODONE/ACETAMINOPHEN 5mg/325mg TAB PO PRN ×3 (01:21→22:23)
[2022-08-25] MEDS: metroNIDAZOLE 500 MG/100 ML BAG IV SCH ×3 (03:13→18:21)
[2022-08-25] MEDS: HYDROmorphone INJ 0.5 MG/0.5 ML SYR IV PRN ×5 (03:13→20:30)
[2022-08-25] MEDS: LACTATED RINGER'S 1,000 ML IV SCH ×2 (03:21→22:35)
[2022-08-25] MEDS ORDERED: VANCOMYCIN CONSULT ACTIVE PRN (07:24)
[2022-08-25] MEDS ORDERED: VANCOMYCIN HCL 2,000 MG in SODIUM CHLORIDE 0.9% 500 ML IV ONE (08:00)
--- NOTE | 2022-08-25 08:01 | Surgery Progress Note ---
Date of Service August 25, 2022 Assessment & Plan (1) Hypokalemia: Plan: will replete. (2) Acute calculous cholecystitis: Plan: s/p lap cara with bile leak, s/p ercp Wednesday now with pancreatitis, l eukocytosis. LFT's normal, ROSSI continues to clear, lipase less today. Await return of bowel function prior to advancing diet - took miralax, declining suppository. No return yet. Discussed trying to minimize narcotics as this is likely contributing to delayed return of bowel function. 08/25/2022 7:58AM Dr. Hendrix s/p lap subtotal cara with bile leak, s/p ercp Wednesday now with pancreatitis, leukocytosis. LFT's normal, ROSSI continues to clear, less 100ml/day, doing better, today labs pending, tolerated clear diet, OOB keep clear diet today, will F/U labs, I update information to pt, pt understood, I answered all questions, Admission and Anticipated Discharge Date Admission Date: August 21, 2022 Supervising Physician Co-Signing Physician Notes I performed a history and physical examination of the patient today, including specifically on physical exam - soft abdomen. I have discussed the patient's management with the advanced practitioner. Please refer to the nurse practitioner's note for the documented findings and plan of care. ERCP Patient was explained in detail regarding risks, benefits, limitations and alternatives of the above endoscopic procedure. Risks of intravenous sedation used for procedure were also explained. Risks include, but not limited to perforation, bleeding, infection, respiratory distress, cardiac arrest and . Patient is also aware about the possibility of missed lesion. Patient's questions were answered. The patient verbalized understanding the information and agreed to undergo the procedure. Subjective Feels about the same. Still with epigastric pain, belching. States no flatus or bowel movement. Taking miralax and is noticing more rumbling. 08/25/2022 7: 52AM Dr. Hendrix F/U S/P laparoscopic subtotal cholecystectomy, POD 6, S/P ERCP, POD 4 doing better, less abdominal pain, no nausea, no vomiting, T 37.2, ROSSI 100ml clear color, Physical Exam Constitutional: WD/WN, vitals as above no distress Eyes: PERRL, conjunctivae normal, anicteric sclerae Neck: trachea midline, no thyromegaly Respiratory: normal respiratory effort, lungs clear to auscultation Cardiovascular: RRR, no murmur, no edema Gastrointestinal (Abdomen): soft, mild tenderness at RUQ, no rebound pain, no distend, all incisions intact, no redness, ROSSI intact, Musculoskeletal: no cyanosis or clubbing, extremities motor strength 5/5 Neurologic: patellar DTR's 2+ bilat, sensation intact Psychiatric: A+Ox3, euthymic affect Results & Data ([facility]) Vital Signs (Past 12 Hours) Vital Signs Temp Pulse Resp BP Pulse Ox O2 Del Method 08/25/22 07:14 37.2 C 82 18 126/80 92 Room Air Laboratory Results Abnormal lab results 08/24/22 08/24/22 Range/Units 07:46 07:46 WBC 25.66 H (4.8-10.8) K/ul MPV 8.7 L (9.4-12.3) fL Neut # (Auto) 22.98 H (1.4-6.5) K/uL Lymph # (Auto) 1.01 L (1.2-3.4) K/uL [place] # (Auto) 1.44 H (0.24-0.82) K/uL Immature Gran # (Auto) 0.15 H (0.00-0.02) K/uL Sodium 133 L (136-145) mmol/L Potassium 3.3 L (3.5-5.1) mmol/L BUN 5 L (6-23) mg/dl Creatinine 0.53 L (0.6-1.2) mg/dl BUN/Creatinine Ratio 9.4 L (10-20) Glucose 111 H (70-99(Fasting)) mg/dl Calcium 7.8 L (8.5-10.1) mg/dl AST 9 L (13-39) U/L Total Protein 5.6 L (6.0-8.3) gm/dl Albumin 3.1 L (3.4-5.0) gm/dl Lipase 378 H (11-82) U/L
[2022-08-25] MEDS: CIPROFLOXACIN / D5W 400 MG/200 ML BAG IV SCH ×2 (08:46→20:31)
[2022-08-25] MEDS: NICOTINE 7 MG/24 HR TDSY TD SCH (08:51)
[2022-08-25] MEDS: PANTOprazole 40 MG TAB PO SCH (08:53)
[2022-08-25] MEDS: DOCUSATE SODIUM 100 MG CAP PO SCH ×2 (08:54→20:40)
[2022-08-25] MEDS: POTASSIUM CHLORIDE CRTAB 20 MEQ TABCR PO SCH ×2 (08:54→20:40)
[2022-08-25] MEDS: FAMOTIDINE 20 MG TAB PO SCH ×2 (08:55→20:39)
[2022-08-25] MEDS: SUCRALFATE 1 GM/10 ML UDC PO SCH ×4 (08:56→20:39)
[2022-08-25] MEDS: POLYETHYLENE (MIRALAX) 17 GM PACK PO SCH (08:56)
[2022-08-25 09:59] LABS: Basophils # (auto) 0.06 K/uL (0-0.2); Basophils % (auto) 0.3 %; Eosinophils # (auto) 0.18 K/uL (0-0.50); Eosinophils % (auto) 0.8 %; Hematocrit (blood only) 34.6 % (34.1-44.9); Hemoglobin 11.9 g/dl (12.0-16.0); Immature Granulocytes # (auto) 0.12 K/uL (0.00-0.02); Immature Granulocytes % (auto) 0.5 %; Lymphocytes # (auto) 1.49 K/uL (1.2-3.4); Lymphocytes % (auto) 6.5 %; Mean Corpuscular Hemoglobin 27.9 pg (25.0-34.0); Mean Corpuscular Hgb Conc 34.4 g/dL (32.0-36.0); Mean Corpuscular Volume 81.2 fL (80.0-100.0); Mean Platelet Volume 9.4 fL (9.4-12.3); Monocytes # (auto) 1.48 K/uL (0.24-0.82); Monocytes % (auto) 6.4 %; Neutrophils # (auto) 19.71 K/uL (1.4-6.5); Neutrophils % (auto) 85.5 %; Platelet Count 396 K/uL (130-400); RDW Coefficient of Variation 13.2 % (11.5-14.5); RDW Standard Deviation 38.9 fL (36.4-46.3); Red Blood Count 4.26 M/uL (3.93-5.22); White Blood Count 23.04 K/ul (4.8-10.8)
[2022-08-25 10:54] LABS: Albumin Globulin Ratio 1.1 (0.9-2); Albumin Level 3.1 gm/dl (3.4-5.0); BUN Creatinine Ratio 11.1 (10-20); Bilirubin,Total 0.5 mg/dl (0.2-1.0); Calcium 8.2 mg/dl (8.5-10.1); Creatinine Clr Calc Pharmacy 168.9 ml/min; Est GFR (African American) 145.3 ml/min; Est GFR (Non-African American) 125.3 ml/min; Globulin 2.8 gm/dl (2.5-4.0); Potassium 3.1 mmol/L (3.5-5.1); Total Protein 5.9 gm/dl (6.0-8.3)
--- NOTE | 2022-08-25 14:08 | Pharmacy Report ---
Pharmacy PK ABX Note - Date of Service August 25, 2022 - Assessment and Plan Assessment * Ms Boateng is a 42 year old F receiving cipro/metronidazole for GI indication. Vancomycin was added this morning. * Pt is s/p lap cara on 08/19 and ERCP 08/21. * Pt developed leukocytosis a few days ago, which is now trending down. Pt has been afebrile. Plan Vancomycin * Loading dose: 2000 mg IV x 1 * Maintenance dose: 1500 mg IV every 12 hours * Regimen is predicted to achieve target AUC/BRENDAN of 400-600 mg/L.hr * If patient remains on IV vancomycin, will check a vanc level in 1-2 days. Pharmacy will continue to follow and will adjust dose/frequency as necessary. Thank you. Pharmacy has transitioned to AUC monitoring for vancomycin. AUC/BRENDAN is the preferred PK/PD target and is associated with decreased risk of nephrotoxicity compared to traditional trough targets.
[2022-08-25] MEDS: VANCOMYCIN HCL 1,500 MG in SODIUM CHLORIDE 0.9% 500 ML IV SCH (17:44)
[2022-08-26] MEDS: HYDROmorphone INJ 0.5 MG/0.5 ML SYR IV PRN ×2 (00:03→05:26)
[2022-08-26] MEDS: metroNIDAZOLE 500 MG/100 ML BAG IV SCH ×2 (03:11→11:07)
[2022-08-26] MEDS: VANCOMYCIN HCL 1,500 MG in SODIUM CHLORIDE 0.9% 500 ML IV SCH (05:21)
[2022-08-26] MEDS: CIPROFLOXACIN / D5W 400 MG/200 ML BAG IV SCH (08:13)
[2022-08-26] MEDS: oxyCODONE/ACETAMINOPHEN 5mg/325mg TAB PO PRN ×2 (08:22→12:30)
[2022-08-26] MEDS: PANTOprazole 40 MG TAB PO SCH (08:23)
[2022-08-26] MEDS: SUCRALFATE 1 GM/10 ML UDC PO SCH ×2 (08:23→12:30)
[2022-08-26] MEDS: POLYETHYLENE (MIRALAX) 17 GM PACK PO SCH (08:24)
[2022-08-26] MEDS: FAMOTIDINE 20 MG TAB PO SCH (08:24)
[2022-08-26] MEDS: NICOTINE 7 MG/24 HR TDSY TD SCH (08:24)
[2022-08-26] MEDS: DOCUSATE SODIUM 100 MG CAP PO SCH (08:24)
[2022-08-26 09:26] LABS: Basophils # (auto) 0.04 K/uL (0-0.2); Basophils % (auto) 0.3 %; Eosinophils # (auto) 0.33 K/uL (0-0.50); Eosinophils % (auto) 2.2 %; Hemoglobin 10.8 g/dl (12.0-16.0); Immature Granulocytes # (auto) 0.08 K/uL (0.00-0.02); Immature Granulocytes % (auto) 0.5 %; Lymphocytes # (auto) 1.43 K/uL (1.2-3.4); Lymphocytes % (auto) 9.7 %; Mean Corpuscular Hemoglobin 27.9 pg (25.0-34.0); Mean Corpuscular Hgb Conc 33.8 g/dL (32.0-36.0); Mean Corpuscular Volume 82.7 fL (80.0-100.0); Mean Platelet Volume 8.7 fL (9.4-12.3); Monocytes # (auto) 1.14 K/uL (0.24-0.82); Monocytes % (auto) 7.8 %; Neutrophils # (auto) 11.67 K/uL (1.4-6.5); Neutrophils % (auto) 79.5 %; Platelet Count 397 K/uL (130-400); RDW Coefficient of Variation 13.2 % (11.5-14.5); RDW Standard Deviation 39.7 fL (36.4-46.3); Red Blood Count 3.87 M/uL (3.93-5.22); White Blood Count 14.69 K/ul (4.8-10.8)
[2022-08-26] MEDS: LACTATED RINGER'S 1,000 ML IV SCH (11:56)
--- NOTE | 2022-08-26 12:30 | Surgery Progress Note ---
Date of Service August 26, 2022 Assessment & Plan (1) Hypokalemia: Plan: will replete. (2) Acute calculous cholecystitis: Plan: POD # 7 s/p laparoscopic subtotal cholecystectomy POD # 5 s/p ERCP with biliary stent placement x 2 for postop bile leak -developed post ERCP pancreatitis, lipase normalized Leukocytosis improved to 14k today (23k yesterday) afebrile pain moderate but controlled + bowel function Plan: Plan for discharge home today with 7 days of PO Cipro and flagyl and cheli drain follow-up Dr. ramírez next week discharge instructions reviewed Discussed with dr. ramírez who agrees with above and who was present during my examination earlier this morning during rounds. Admission and Anticipated Discharge Date Admission Date: August 21, 2022 Subjective feeling better today, pain is decreasing in severity and frequency pain currently 3-4/10 some mild belching and still feeling slightly bloated but had bowel movement this morning would like to go home Physical Exam Constitutional: WD/WN, vitals as above no acute distress and not ill appearing Neck: normal visual inspection and trachea midline Respiratory: normal respiratory effort; no respiratory distress, no labored breathing and no retractions Gastrointestinal (Abdomen): Inspection/Auscultation: + abdomen distended (mild distention) and + abdominal surgical incision (clean/dry/intact with steri strips present) Percussion/Palpation: + abdomen tender (at incision sites and drain site) and abdomen soft; no guarding and abdomen not rigid Skin: no rashes, warm and dry Psychiatric: Orientation: alert and oriented x 3 Results & Data ([facility]) Vital Signs (Past 12 Hours) Vital Signs Temp Pulse Resp BP Pulse Ox O2 Del Method 08/26/22 08:00 37.1 C 83 18 128/75 97 Room Air Laboratory Results 08/26/22 Range/Units 08:53 WBC 14.69 H (4.8-10.8) K/ul RBC 3.87 L (3.93-5.22) M/uL Hgb 10.8 L (12.0-16.0) g/dl Hct 32.0 L (34.1-44.9) % MCV 82.7 (80.0-100.0) fL MCH 27.9 (25.0-34.0) pg MCHC 33.8 (32.0-36.0) g/dL RDW Std Deviation 39.7 (36.4-46.3) fL RDW Coeff of Deidra 13.2 (11.5-14.5) % Plt Count 397 (130-400) K/uL MPV 8.7 L (9.4-12.3) fL Immature Gran % (Auto) 0.5 % Neut % (Auto) 79.5 % Lymph % (Auto) 9.7 % Bond % (Auto) 7.8 % Eos % (Auto) 2.2 % Baso % (Auto) 0.3 % Neut # (Auto) 11.67 H (1.4-6.5) K/uL Lymph # (Auto) 1.43 (1.2-3.4) K/uL Bond # (Auto) 1.14 H (0.24-0.82) K/uL Eos # (Auto) 0.33 (0-0.50) K/uL Baso # (Auto) 0.04 (0-0.2) K/uL Immature Gran # (Auto) 0.08 H (0.00-0.02) K/uL
[2022-08-27] MEDS ORDERED: VANCOMYCIN LEVEL ONE (05:00)
--- NOTE | 2022-08-28 08:10 | Discharge Summary ---
Date of Service August 28, 2022 Admission HPI Per Admitting Provider Felisha is a 42 year-old female who presented to [facility] for outpatient cholecystectomy for cholelithiasis and RUQ abdominal pain with Dr. Hendrix. Principal Diagnosis Cholelithiasis RUQ abdominal pain Discharge Data Allergies Allergy/AdvReac Type Severity Reaction Status Date / Time amoxicillin AdvReac Intermediate CAUSES Verified 08/19/22 13:33 UTI'S Consultations 08/21/22 10:19 Consult Gastroenterology Routine Procedures Performed Operation Date: 08/19/22 13:40 Actual Procedures p Laparoscopic Subtotal Cholecystectomy(Not Applicable) - Derrek Hendrix MD Operation Date: 08/21/22 10:20 Actual Procedures p Endoscopic Retrograde Cholangiopancreatogram(Not Applicable) - Ami Brannon MD Ordered Studies 08/21/22 17:00 FL ERCP biliary ductal Routine 08/23/ 09:39 CT Abd and Pelvis [CT abd pelvis IV con only] Urgent Hospital Course (1) Acute calculous cholecystitis: Patient was taken to operating room for laparoscopic cholecystectomy by Dr. Hendrix on 08/19/2022. Found to have large 3 cm stone in the neck of gallbladder with significant inflammation. Subtotal cholecystectomy was performed. Patient tolerated procedure and was transferred to recovery room then to medical/surgical floor for postoperative care. Diet was advanced to clear liquids, IV pain management with IV Dilaudid and PO Percocet as needed for pain, IV zofran as needed for nausea, and IV antibiotics with Cipro and flagyl. POD # 1 she was having moderate to severe pain not well controlled with pain medications. She was given one time dose of IV Toradol which helped control pain. Incentive spirometry was ordered and patient was encouraged to ambulate. SCOUT drain was serosanguineous. POD # 2 pain better controlled and tolerating soft diet however scout drain looked bilious. t. bili and lfts wnl. GI consulted and patient was scheduled for ERCP. Two biliary stents placed for bile leak. POD # 3 patient had continued pain and bloating and belching. Leukocytosis increased to 17K. IV antibiotics continued. POD # 4 epigastric/RUQ pain continued, leukocytosis increased to 23,000. CT scan of abdomen and pelvis was obtained which showed acute pancreatitis. Lipase elevated at 1868. IV antibiotics continued. Converted to NPO except ice chips and sips. POD # 5 Pain still present and white count 25,000. Lipase improved to 378. IV antibiotics continued, clear diet, and encouraged to limit narcotics to avoid constipation and decreased GI motility, and encouraged to ambulate. POD # 6, leukocytosis improved to 23,000, clear liquid diet was continued. POD # 7, leukocytosis improved to 14,000, pain slowly improved and had a bowel movement. Diet was advanced to soft diet which she tolerated. Scout drain was serosanguineous after POD # 4. She was discharged home with scout drain and PO Cipro and Flagyl for another 7 days on POD # 7. (2) Hypokalemia: POD # 4 potassium 3.1 which was repleted (3) Postoperative bile leak: (4) Post-ERCP acute pancreatitis: Total Time Total Time Spent Total Time Spent (In Minutes): 60 minutes Discharge Plan Discharge Items Patient Disposition: Home - Self-Care Reason For Visit: Chronic Calculous Cholecystitis Discharge Diagnosis: Chronic calculous cholecystitis Postoperative bile leak Activity: Per Instructions section Non-emergency contact: Primary Care Provider and Surgeon Call non-emergency contact if: you have any medication questions, your pain is not controlled, your pain is worsening, you have a fever, your temperature is above 101, your wound has increased redness, your wound has increased drainage and your wound pain has increased Follow-up/Referrals: Derrek Hendrix MD [Physician] - 09/03/23 11:00 am PCPJANETH [Primary Care Provider] - Diet: Low Fat Addtl Attending Provider Instructions: Post-Surgical ~Discharge Instructions Activity Recommendations: - lifting limitation: (20 pounds for 4 weeks), - exercise/sex/sports limit: (nonstrenuous for 2 weeks), - driving or machine use limit: (none for 1 week or until pain free and no longer taking narcotic pain medication), - Shower/bathe limit: (may shower) Diet: - Would avoid fatty/greasy/fried foods for about 2 weeks. No dietary restriction fdc. SPECIAL CARE INSTRUCTIONS: - May shower. Try to keep incision sites and drain site dry if possible and cleanse around them. - You may remove the steri strips when you get in shower. Get them wet and its easier to pull them off. - Keep drain sponge around drain and change daily or as needed to keep clean and dry. - Record drain output and color and bring record with you to office. - Surgical drain will be remove in office. - Call the surgeon's office with any questions or concerns - - (ex. temperature higher than 101 degrees F, excessive bleeding or pain). MEDICATIONS: - Resume previous medications unless instructed otherwise by your surgeon. - May take extra strength Tylenol as needed for mild to moderate pain -650 mg every 6 hours as needed - Avoid NSAIDS (Ibuprofen, Motrin, Aleve) and Aspirin for 7 days. - Percocet 1 every 4 hours, as needed for moderate to severe pain - Recommend daily stool softener (Colace) while taking narcotic pain medication to prevent constipation and straining. Drink plenty of water daily. May take Miralax daily for 3 days if you are having some constipation or hard stools. - Take antibiotics as prescribed for 7 days - Cipro 500 mg twice a day - Flagyl 500 mg three times a day - Take the antifungal one time dose to prevent vaginal yeast infection while taking antibiotics FOLLOW UP VISIT: - You are scheduled for follow-up with Dr. Hendrix on Wednesday09/03/22 at 11:00 am Office number Pending Studies at Discharge: No Stand-Alone Forms: My [facility] [employer], Work/School Release, Smoking Cessation Medications and DC Order Prescriptions: New oxycodone-acetaminophen 5-325 mg tablet 1 tab PO Q4H PRN (Reason: pain) Qty: 18 0RF ciprofloxacin HCl 500 mg tablet 500 mg PO BID Qty: 14 0RF metronidazole 500 mg tablet 500 mg PO TID Qty: 21 0RF fluconazole 150 mg tablet 150 mg PO ONCE Qty: 1 0RF Rx Instructions: administer on day 1 of therapy Continued famotidine 20 mg Tablet 20 mg PO BID omeprazole 20 mg Capsule,Delayed Release(Dr/Ec) 20 mg PO QAM Discharge Orders: Discharge Order (Routine); Ordered 08/26/22 Ordered By: Karla Kenyon/Other Patient Handouts: Erik Montelongo Drain Tube Dc, Post Op Drain Emptying Steps Admission Data Admit Date/Time: 08/21/22 10:48 Attending Provider: Derrek Hendrix Admit Provider: Derrek Hendrix Primary Care Provider: PCP,NO Other Providers: Ami Brannon Other Interventions: Discharge Summary Assessment (RN) Last Done: 08/26/22 13:57
== END 2022-08-26 15:37 | disposition home or self-care (01) | DRG 417 ==
LOC: ASU 13:02 → 3N 13:02